=== PATIENT | male | born 1980 | race Caucasian/White ===

== ENCOUNTER 2024-04-21 16:02 | Emergency (ER) | payer SELFPAY ==
[2024-04-21 16:02] VITALS: BMI 24.7
[2024-04-21 16:08] VITALS: BP 100/65
[2024-04-21 16:31] LABS: % Basophils 0.1 % (0-2); % Immature Granulocytes 0.4 % (0-0.5); % Lymphocytes 18.7 % (20.5-51.1); % Monocytes 8.6 % (1.7-9.3); % Neutrophils 72.2 % (42.2-75.2); Absolute Immature Granulocytes 0.1 10^3/uL (0-0.05); Absolute Monocytes 1.4 10^3/uL (0.1-0.6); Absolute Neutrophils 11.6 10^3/uL (1.4-6.5); Hematocrit 40.6 % (39.0-52.0); Hemoglobin 14.7 g/dL (13.0-18.0); Mean Corp Hgb Conc. 36.2 g/dL (33.0-37.0); Mean Corpuscular Hgb 30.6 pg (27.0-31.0); Mean Corpuscular Volume 84.6 fL (80.0-94.0); Mean Platelet Volume 9.6 fL (7.4-10.4); Nucleated Red Blood Cells % 0 % (-); Platelet Count 320 10^3/uL (130-400); Red Cell Dist. Width 12.3 % (11.5-14.5); White Blood Cell Count 16.1 10^3/uL (4.8-10.8)
[2024-04-21 16:42] LABS: ALT (SGPT) 37 U/L (0-50); AST (SGOT) 35 U/L (17-59); Albumin 4.7 g/dl (3.5-5.0); Alkaline Phosphatase 46 U/L (38-126); Blood Urea Nitrogen 19 mg/dl (9-20); Calcium 9.7 mg/dl (8.4-10.2); Carbon Dioxide 23 mmol/L (22-30); Chloride 96 mmol/L (98-107); Glucose 105 mg/dl (70-99); Potassium 3.5 mmol/L (3.5-5.1); Sodium 133 mmol/L (135-145); Total Bilirubin 0.9 mg/dl (0.2-1.3); Total Protein 7.5 g/dl (6.3-8.2); eGFR > 60.00
[2024-04-21 16:53] LABS: Lipase 77 U/L (23-300)
[2024-04-21 18:35] VITALS: BP 92/57
--- NOTE | 2024-04-21 19:49 | ED.GENMED ---
History of Present Illness
General
Chief Complaint: Abdominal Symptoms
Time Seen by Provider: 04/21/24 19:33
History of Present Illness
History of Present Illness:
43-year-old male presents to the emergency department for evaluation of persistent nausea vomiting and diarrhea as well as hot and cold flashes over the past 2 days. Denies any abdominal pain. No hematemesis or hematochezia. Prior history of
substance abuse but denies recent use. No chest pain or shortness of breath. No ill contacts. No prior abdominal surgeries
Past History
Past History
ED Past Medical History: None
ED Past Surgical History: None
Social History
Tobacco: Non-smoker
Alcohol: None
Review of Systems
Review of Systems
Allergies reviewed?: Yes
All Other Systems: ROS reviewed and negative except as documented in HPI and ROS
Phy Exam
Physical Exam
Physical Exam:
GEN: Well appearing, NAD, WDWN
HEENT: Oral mucosa moist, no scleral icterus
Cardiac: Regular rate
Lung: No respiratory distress, no tachypnea
Abdomen: Soft, grossly nontender
MSK: No gross deformity or injuries
Skin: Good color, no pallor or jaundice, no rashes
Neuro: AO x3, moves all extremities freely
Psych: Calm, cooperative
Course
Orders/Labs/Results
Orders:
Orders
04/21/24 16:20
Complete Blood Count/With Diff Urgent
Comprehensive Metabolic Panel Urgent
Lipase Urgent
04/21/24 19:48
Ondansetron Injectable [Zofran] 4 mg IV NOW STA
04/21/24 19:49
Lactated Ringers [Lr] 1,000 ml IV BOLUS
Abnormal Lab Results
04/21/24
16:20
WBC 16.1 H 10^3/uL
(4.8-10.8)
Abs Immat Gran (auto) 0.1 H 10^3/uL
(0-0.05)
Absolute Neuts (auto) 11.6 H 10^3/uL
(1.4-6.5)
Absolute Monos (auto) 1.4 H 10^3/uL
(0.1-0.6)
Lymphocytes % 18.7 L %
(20.5-51.1)
Sodium 133 L mmol/L
(135-145)
Chloride 96 L mmol/L
(98-107)
Glucose 105 H mg/dl
(70-99)
04/21/24 16:20
04/21/24 16:20
Vital Signs
Initial and Last Documented VS:
Initial Vital Signs
Temp Pulse Resp BP Pulse Ox
98 F 70 18 100/65 97
04/21/24 16:08 04/21/24 16:08 04/21/24 16:08 04/21/24 16:08 04/21/24 16:08
Last Documented Vital Signs
Temp Pulse Resp BP Pulse Ox
98 F 62 18 101/72 98
04/21/24 16:08 04/21/24 21:58 04/21/24 21:58 04/21/24 21:58 04/21/24 21:58
MDM/Problems Addressed
MDM/Problems Addressed:
Likely self-limited viral syndrome. He does have leukocytosis however this is likely a stress reaction due to persistent vomiting. He has a reassuring abdominal exam with no tenderness, do not see indication for CT of the abdomen and pelvis at
this time. Tolerating p.o. fluids at time of discharge.
*Critical Care Note
Total Time (30-74mins, 75-104mins- exclusive of procedures): Not Applicable
ED Attending Note
-
Portions of this chart may have been created with voice recognition software.� Occasional wrong word or��sound alike� substitutions may have occurred due to the inherent limitations of voice recognition software.
Discharge Plan
Departure
Patient Disposition: Home (Routine Discharge)
Date of Disposition: 04/21/24
Time of Disposition: 21:30
Patient with high blood pressure during this ER visit?: No
Discharge Problem:
Gastroenteritis
Instructions: Nausea and Vomiting, Adult (DC)
Prescriptions:
New
ondansetron 4 mg tablet,disintegrating
4 mg PO TIDPRN PRN (Reason: nausea/vomiting) Qty: 10 0RF
Referrals:
NONE,* [Family Provider] -
Interventions
Interventions:
*Risk Screen - Suicide Last Done: 04/21/24 16:08
*General Assessment Last Done: 04/21/24 16:08
*Neglect/Abuse Screening Last Done: 04/21/24 16:08
*ED COVID-19 Vaccine History Last Done: 04/21/24 20:54
*Nursing Disposition Last Done: 04/21/24 22:06
LU-Evpanl-Uwkblhsooh Assessment Last Done: 04/21/24 20:54
Discharge Date and Time
Discharge Date/Time: 04/21/24 22:07
Print Language: LATVIAN
[2024-04-21] MEDS: LR 1000 IV (20:50)
[2024-04-21] MEDS: ZOFRAN 4 MG IV (20:50)
[2024-04-21 21:58] VITALS: BP 101/72
== END 2024-04-21 22:07 | disposition home or self-care (01) ==
LOC: EMR 16:02
PROVIDERS: Student in an Organized Health Care Education/Training Program; EMERGENCY PHYSICIAN Emergency Medicine
DX: K52.9 Noninfective gastroenteritis and colitis, unspecified (principal)
CPT/HCPCS: 99284; 96374; 96361; 80053; 83690; 85025